=== PATIENT | male | born 1955 | race Caucasian/White ===

== ENCOUNTER 2021-04-25 12:26 | Day surgery (SDC) | payer OTHER ==
[~2021-04-25 12:26] MED LIST: ALLI60 MG PO; ALOGLIPTIN25 M1 PO; ATOR40TA PO; Aspir 8181 MG PO; DICLOFENAC SOD100 G1; FISH OIL 1,2001 EAC1 PO; GLUCOPHAGE1000 M1 PO; INSULANI; JARDIANCE25 MG PO; LOSA25 PO; PANT20 PO; WEGOVY0.5 MG/0.5 SC
[2021-04-25] MEDS ORDERED: OZEMPIC0.25 MG/0. (12:47)
[2021-04-25] MEDS ORDERED: PROB500 (12:48)
== END 2021-04-25 14:36 | disposition home or self-care (01) ==
LOC: ORSCSDS 12:26
PROVIDERS: Student in an Organized Health Care Education/Training Program
PROC: 0DBM8ZX Excision of Descending Colon, Via Natural or Artificial Opening Endoscopic, Diagnostic (ICD-10-PCS; principal; 2021-04-25 14:00)
PROC: 0DBL8ZX Excision of Transverse Colon, Via Natural or Artificial Opening Endoscopic, Diagnostic (ICD-10-PCS; principal; 2021-04-25 14:00)
DX: R93.3 Abnormal findings on diagnostic imaging of other parts of digestive tract (principal); D12.3 Benign neoplasm of transverse colon; D12.4 Benign neoplasm of descending colon; I10 Essential (primary) hypertension; E11.9 Type 2 diabetes mellitus without complications; G47.33 Obstructive sleep apnea (adult) (pediatric); E66.9 Obesity, unspecified; Z68.41 Body mass index [BMI] 40.0-44.9, adult; Z79.82 Long term (current) use of aspirin; Z79.899 Other long term (current) drug therapy
CPT/HCPCS: 82947; 88305; J2704; J7120

== ENCOUNTER 2021-06-21 06:29 | Day surgery (SDC) | payer OTHER ==
[~2021-06-21] VITALS: Ht 177.8 cm; Wt 133.1 kg
[~2021-06-21 06:29] MED LIST changes: +OZEMPIC0.25 MG/0.; +PROB500
== END 2021-06-21 09:05 | disposition home or self-care (01) ==
LOC: ORSCSDS 06:29
PROVIDERS: Student in an Organized Health Care Education/Training Program
PROC: 0DBL8ZX Excision of Transverse Colon, Via Natural or Artificial Opening Endoscopic, Diagnostic (ICD-10-PCS; principal; 2021-06-21 08:00)
DX: Z12.11 Encounter for screening for malignant neoplasm of colon (principal); Z86.010 Personal history of colon polyps; D12.3 Benign neoplasm of transverse colon; I10 Essential (primary) hypertension; G47.33 Obstructive sleep apnea (adult) (pediatric); Z87.891 Personal history of nicotine dependence; Z79.899 Other long term (current) drug therapy; Z79.84 Long term (current) use of oral hypoglycemic drugs; E11.9 Type 2 diabetes mellitus without complications; E66.01 Morbid (severe) obesity due to excess calories; Z68.41 Body mass index [BMI] 40.0-44.9, adult; Z79.82 Long term (current) use of aspirin
CPT/HCPCS: 82947; 88305; J2704; J7120

== ENCOUNTER 2021-09-13 06:36 | Day surgery (SDC) | payer OTHER ==
[~2021-09-13] VITALS: Ht 177.8 cm; Wt 134.9 kg
[~2021-09-13 06:36] MED LIST changes: +MIRALAX17 GM PO; +TRULANCE3 MG PO
== END 2021-09-13 08:49 | disposition home or self-care (01) ==
LOC: ORSCSDS 06:36
PROVIDERS: Ophthalmology
PROC: 08RK3JZ Replacement of Left Lens with Synthetic Substitute, Percutaneous Approach (ICD-10-PCS; principal; 2021-09-13 08:00)
DX: H25.12 Age-related nuclear cataract, left eye (principal); E11.36 Type 2 diabetes mellitus with diabetic cataract; Z79.4 Long term (current) use of insulin; Z79.899 Other long term (current) drug therapy; Z79.82 Long term (current) use of aspirin; I10 Essential (primary) hypertension; G47.33 Obstructive sleep apnea (adult) (pediatric); K21.9 Gastro-esophageal reflux disease without esophagitis; E66.01 Morbid (severe) obesity due to excess calories; Z68.41 Body mass index [BMI] 40.0-44.9, adult
CPT/HCPCS: 82947; J2001; J2250; J3010; J3301; J7040; V2632

== ENCOUNTER 2021-10-04 06:36 | Day surgery (SDC) | payer OTHER ==
[~2021-10-04] VITALS: Ht 177.8 cm; Wt 134.7 kg
--- NOTE | 2021-10-04 07:11 | NUR ---
10/04/21 0711 DENISE ANDREWS @ 4503, TIMMY @ 1800
== END 2021-10-04 08:45 | disposition home or self-care (01) ==
LOC: ORSCSDS 06:36
PROVIDERS: Ophthalmology
PROC: 08RJ3JZ Replacement of Right Lens with Synthetic Substitute, Percutaneous Approach (ICD-10-PCS; principal; 2021-10-04 08:00)
DX: H25.11 Age-related nuclear cataract, right eye (principal); I10 Essential (primary) hypertension; G47.33 Obstructive sleep apnea (adult) (pediatric); K21.9 Gastro-esophageal reflux disease without esophagitis; E11.9 Type 2 diabetes mellitus without complications; E66.01 Morbid (severe) obesity due to excess calories; Z68.41 Body mass index [BMI] 40.0-44.9, adult; Z79.4 Long term (current) use of insulin; Z79.899 Other long term (current) drug therapy
CPT/HCPCS: 82947; J2001; J2250; J3010; J3301; J7040; V2632

== ENCOUNTER 2024-03-19 21:18 | Emergency (ER) | payer OTHER ==
[~2024-03-19] VITALS: Ht 177.8 cm; Wt 108.9 kg
[~2024-03-19 21:18] MED LIST changes: +ALBU90OI; +FINA5; +JARDIANCE25 MG; +KETOROLAC TROMET5 ML; +MECL12.5; +OCUFLOX511; +REFRESH TEARS P10 ML; +TAMS.4ER; +TIOT18; +TRULANCE3 MG; +VITAMIN D32000 UNI1
[2024-03-19] MEDS ORDERED: Famotidine 20 MG Tab PO ONE (21:40)
[2024-03-19] MEDS ORDERED: DiphenhydrAMINE HCl 50 MG Cap PO ONE (21:40)
[2024-03-19] MEDS ORDERED: PredniSONE 20 MG Tab PO ONE (21:50)
[2024-03-19] MEDS ORDERED: EPIPEN0.3 MG/0.3 IM (22:13)
[2024-03-19 22:23] VITALS: BP 133/86
== END 2024-03-19 22:24 | disposition home or self-care (01) ==
LOC: ER 21:18
DX: T78.1XXA Other adverse food reactions, not elsewhere classified, initial encounter (principal); L29.9 Pruritus, unspecified; I10 Essential (primary) hypertension; E11.42 Type 2 diabetes mellitus with diabetic polyneuropathy; E78.5 Hyperlipidemia, unspecified; Z79.82 Long term (current) use of aspirin; Z79.84 Long term (current) use of oral hypoglycemic drugs; Z79.4 Long term (current) use of insulin; Z79.899 Other long term (current) drug therapy
CPT/HCPCS: 99283; A9270; J7512